=== PATIENT | female | born 1965 | race Caucasian/White ===

== ENCOUNTER 2020-08-08 10:35 | Outpatient (CLI) | payer OTHER, SELFPAY ==
--- NOTE | ~2020-08-08 | MM_ITS ---
EXAMINATION: MM screening [facility] BI w lizz HISTORY: Screening mammogram TECHNIQUE: Craniocaudal and mediolateral oblique 3-D tomosynthesis images were obtained and synthetic 2-D images were generated. CAD analysis was submitted and interpreted. COMPARISON: 02/14/2018, 04/14/2016, 04/07/2016, 11/12/2014 BREAST PARENCHYMAL COMPOSITION: There are scattered areas of fibroglandular density. FINDINGS: Changes of excisional biopsy are present in the right breast. There are waxing and waning b ilateral breast masses, consistent with cysts. There is no evidence of suspicious mass, calcification , or architectural distortion to suggest malignancy in either breast. There has been no suspicious in terval change. IMPRESSION: 1. No mammographic evidence of malignancy. 2. Recommend routine screening mammography in one year. BI-RADS Category 2: Benign finding(s). Reviewed, dictated and finalized at location [facility].
== END 2020-08-08 10:36 | disposition home or self-care (01) ==
PROVIDERS: Visit Provider Physician Assistant
DX: Z12.31 Encounter for screening mammogram for malignant neoplasm of breast (principal)
CPT/HCPCS: 77063; 77067

== ENCOUNTER 2020-11-17 01:43 | Day surgery (SDC) | payer OTHER, SELFPAY ==
[2020-11-06 08:32] VITALS: BMI 38.2
[2020-11-17 06:55] VITALS: BP 120/69; PULSE 84; RESP 18; TEMP 36.3; O2SAT 97; BMI 38.5
[2020-11-17] MEDS: LACTATED RINGERS 1,000 ML 150 ML IV CONT (07:27)
--- NOTE | 2020-11-17 07:28 | WPDGICN ---
Assessment and Plan Assessment and plan (1) History of colon polyps: Code(s): Z86.010 - Personal history of colonic polyps Status: Acute Assessment and Plan: Patient has a history of adenomatous colon polyps removed from the colon 2016. She has a family history of colon cancer in aunt. Plan is for follow-up colonoscopy at this time. Consider follow-up examination at 5 year intervals in the future. Pending results of endoscopy. GI Consult Note Consult date/time: 11/17/20 07:28 HPI: Kiera Ford is a 55 year old female Presents for surveillance colonoscopy. Patient was found to have 3 colon polyps confirmed to be adenomas in [address] Lewis. Patient states that her current weight appetite and bowel movements are normal. She denies abdominal pain. She has had no bleeding. Family history is significant for an aunt with colon cancer. Patient presents today for follow-up colonoscopy. Review of Systems Review of Systems: All systems reviewed & are unremarkable except as noted in HPI and below PMFSH Family History Family History Mother Family history of malignant neoplasm of ovary Patient's mother is Depression Grandparent Family history of lung cancer, Onset Age: 72 Other Carcinoma of colon Family history of malignant melanoma Social History Social History Smoking status: Never smoker Second hand tobacco smoke exposure: No Alcohol intake: never Substance use: never Substance use type: does not use Living arrangements: with family Spiritual care concerns: No Meds Home Medications and Allergies Home Medications Medication Instructions Recorded Confirmed Type cholecalciferol (vitamin D3) 50 2,000 unit PO DAILY 01/11/19 11/06/20 History mcg (2,000 unit) tablet evening primrose oil 500 mg capsule 1,500 mg PO DAILY cap 01/11/19 11/06/20 History flaxseed oil 1,000 mg capsule 1,000 mg PO DAILY 01/11/19 11/06/20 History ergocalciferol (vitamin D2) 50,000 unit PO WEEKLY 11/06/20 11/06/20 History glucosamine [id number] 1 cap PO DAILY 11/06/20 11/06/20 History levothyroxine 150 mcg PO DAILY 11/06/20 11/06/20 History Allergies Allergy/AdvReac Type Severity Reaction Status Date / Time propoxyphene AdvReac Intermediate NV Verified 11/17/20 06:54 shellfish derived AdvReac Intermediate Gastrointestinal Verified 11/17/20 06:54 Upset amoxicillin AdvReac Mild STOMACH Verified 11/17/20 06:54 UPSET naproxen AdvReac Mild Gastrointestinal Verified 11/17/20 06:54 Upset HYDROCODONE BIT AdvReac Intermediate STOMACH Uncoded 04/25/16 07:22 UPSET Vital Signs Vital Signs - 24 hr 11/17/20 06:55 Temperature 97.3 F L Pulse Rate 84 Respiratory Rate 18 Blood Pressure 120/69 Pulse Oximetry 97 Exam Narrative: Physical exam reveals patient to be alert. Vital signs stable. HEENT exam is unremarkable. Patient is anicteric. Lungs are clear to auscultation and percussion. Heart is without murmur or extra sounds. Abdominal exam bowel sounds are present soft nontender with no organomegaly. Digital external rectal exam is normal.
--- NOTE | 2020-11-17 07:42 | WPDANESEPPF ---
Anes - Initial Pre Proc Eval Procedure: Operation Date: 11/17/20 08:00 Proposed Procedures p Screening Colonoscopy - Robin Barnard MD Date/Time: 11/17/20 07:42 Surgeon: Robin Barnard MD Pre Op Diagnosis: hx of colon polyps Z86.010 Patient Data Age: 55 Gender: F Height: 1.6 m Weight: 98.5 kg Last Vital Signs Temp 97.3 F L 11/17/20 06:55 Pulse 84 11/17/20 06:55 Resp 18 11/17/20 06:55 BP 120/69 11/17/20 06:55 Pulse Ox 97 11/17/20 06:55 Allergies Allergy/AdvReac Type Severity Reaction Status Date / Time propoxyphene AdvReac Intermediate NV Verified 11/17/20 06:54 shellfish derived AdvReac Intermediate Gastrointestinal Verified 11/17/20 06:54 Upset amoxicillin AdvReac Mild STOMACH Verified 11/17/20 06:54 UPSET naproxen AdvReac Mild Gastrointestinal Verified 11/17/20 06:54 Upset HYDROCODONE BIT AdvReac Intermediate STOMACH Uncoded 04/25/16 07:22 UPSET Home Medications Medication Instructions Recorded Confirmed Type cholecalciferol (vitamin D3) 50 2,000 unit PO DAILY 01/11/19 11/06/20 History mcg (2,000 unit) tablet evening primrose oil 500 mg capsule 1,500 mg PO DAILY cap 01/11/19 11/06/20 History flaxseed oil 1,000 mg capsule 1,000 mg PO DAILY 01/11/19 11/06/20 History ergocalciferol (vitamin D2) 50,000 unit PO WEEKLY 11/06/20 11/06/20 History glucosamine ejw-[id number]-gvy 1 cap PO DAILY 11/06/20 11/06/20 History levothyroxine 150 mcg PO DAILY 11/06/20 11/06/20 History Patient hx anesthesia problems: none Family hx anesthesia problems: none PMFSH Past Medical History Medical History (Updated 11/17/20 @ 07:43 by Shahid Harrison MD) Hypercholesteremia Hypothyroidism (acquired) Family History Family History Mother Family history of malignant neoplasm of ovary Patient's mother is Depression Grandparent Family history of lung cancer, Onset Age: 72 Other Carcinoma of colon Family history of malignant melanoma Social History Social History Smoking status: Never smoker Second hand tobacco smoke exposure: No Alcohol intake: never Substance use: never Substance use type: does not use Living arrangements: with family Spiritual care concerns: No Anes - Eval Final PreProcedure Day of Procedure 11/17/20 07:42 Patient weight: obese Heart: regular rate and rhythm Lungs: clear to auscultation Airway: Mallampati scale class III Neurological: alert and oriented Last oral intake: >/= 8 hours ASA classification: III Emergent: no Anesthetic plan: proceed Anesthesia type and monitoring: general GIVS and standard monitoring Informed Consent: The patient's anesthetic plan and its attendant risks and benefits were discussed with the patient/family/POA. Questions were solicited and answers provided to the satisfaction of the patient/family/POA.
[2020-11-17] MEDS: ONDANSETRON INJ 4 MG/2 ML VIAL IV PUSH (07:54)
[2020-11-17 08:25] VITALS: BP 110/54; PULSE 86; RESP 20; O2SAT 97
[2020-11-17 08:35] VITALS: BP 122/61; PULSE 78; RESP 15; O2SAT 100
[2020-11-17 08:45] VITALS: BP 125/63; PULSE 73; RESP 17; O2SAT 100
== END 2020-11-17 08:56 | disposition home or self-care (01) ==
PROVIDERS: Visit Provider Internal Medicine Gastroenterology
PROC: 0DJD8ZZ Inspection of Lower Intestinal Tract, Via Natural or Artificial Opening Endoscopic (ICD-10-PCS; CPT 45378; principal; 2020-11-17 08:00)
DX: Z12.11 Encounter for screening for malignant neoplasm of colon (principal); D12.5 Benign neoplasm of sigmoid colon; E78.00 Pure hypercholesterolemia, unspecified; E03.9 Hypothyroidism, unspecified; E66.9 Obesity, unspecified; Z68.38 Body mass index [BMI] 38.0-38.9, adult
CPT/HCPCS: 45385; 88305; J2001; J2405; J2704; J7120

== ENCOUNTER 2021-07-05 13:30 | Outpatient (CLI) | payer OTHER, SELFPAY ==
--- NOTE | ~2021-07-05 | US_ITS ---
US thyroid DATE: 07/05/2021 14:16 INDICATION: Nontoxic goiter TECHNIQUE: Real-time and color flow imaging of the thyroid gland COMPARISON: None FINDINGS: Right lobe of thyroid gland measures 4.7 cm height, 1.6 cm AP and 2.0 cm maximal transverse dimension . Left lobe measures 4.3 cm height, 1.5 cm AP and up to 1.6 cm maximal transverse dimension. There is relatively symmetric somewhat coarse heterogeneous echotexture throughout the thyroid gland, with some focal mid right lobe calcifications. There is an approximately 3.5 x 3.9 x 4.5 mm smooth circumscribed hypoechoic/nearly isoechoic wider t almendarez tall solid lesion of the lower aspect of the right lobe of the thyroid gland (TI-RADS 3; 6 month follow up recommended). No other thyroid mass lesion is noted. IMPRESSION: TI-RADS 3 4.4 mm lower pole right thyroid lesion; six-month thyroid ultrasound follow-u p is recommended Reviewed, dictated and finalized at [facility]. Reviewed, dictated and finalized at location [facility]. IMPRESSION: TI-RADS 3 4.4 mm lower pole right thyroid lesion; six-month thyro id ultrasound follow-up is recommended
== END 2021-07-05 13:31 | disposition home or self-care (01) ==
PROVIDERS: PCP Physician Assistant; Visit Provider Internal Medicine Endocrinology, Diabetes & Metabolism
DX: E04.9 Nontoxic goiter, unspecified (principal)
CPT/HCPCS: 76536

== ENCOUNTER 2021-12-17 11:20 | Outpatient (CLI) | payer OTHER, SELFPAY ==
--- NOTE | ~2021-12-17 | MMUS_ITS ---
EXAMINATION: MM diagnostic [facility] BI w lizz, US breast RT complete HISTORY: Palpable right breast lump with pain TECHNIQUE: Additional 3-D tomosynthesis images of the breasts were performed and synthetic 2-D images were generated. CAD analysis was submitted and interpreted. High resolution complete right breast ul trasound was performed. COMPARISON: Comparison to multiple prior studies sequentially, with oldest reviewed study dated 04/23. BREAST PARENCHYMAL COMPOSITION: Breast composed of scattered areas of fibroglandular density FINDINGS: MAMMOGRAPHIC FINDINGS: The left breast is stable without evidence for malignancy. There are nodular asymmetries in the upper outer quadrant of the right breast which are partially obscured by fibroglandular tissue. There are surgical changes in the upper outer quadrant of the right breast anteriorly corresponding to previous biopsy site. ULTRASOUND: Complete right breast US of all 4 quadrants of the breasts and retroareolar region was reviewed. Ther e are multiple cysts of the right breast, largest at 12:00, 1 cm from the nipple measuring 1 cm great est dimension. There is focal heterogeneous soft tissue with posterior shadowing at 7:00, 3 cm from t he nipple, likely corresponding to previous surgical site. No suspicious masses to suggest malignancy . IMPRESSION: 1. No evidence for malignancy in either breast. Benign findings. 2. Routine yearly screening mammogram and regular clinical breast examination are recommended. BI-RADS Category 2: Benign finding(s). Reviewed, dictated and finalized at location A. IMPRESSION: 1. No evidence for malignancy in either breast. Benign findings. 2. Routine yearly screening mammogram and regular clinical breast examination a re recommended. BI-RADS Category 2: Benign finding(s).
== END 2021-12-17 11:21 | disposition home or self-care (01) ==
LOC: ANHIMG 11:22
PROVIDERS: PCP Physician Assistant; Visit Provider Physician Assistant
DX: N64.4 Mastodynia (principal); N63.41 Unspecified lump in right breast, subareolar
CPT/HCPCS: 76641; 77062; 77066; G0279

== ENCOUNTER 2023-07-07 15:00 | Outpatient (CLI) | payer OTHER, SELFPAY ==
--- NOTE | ~2023-07-07 | MM_ITS ---
EXAMINATION: MM screening [facility] BI w lizz HISTORY: Screening mammogram TECHNIQUE: Craniocaudal and mediolateral oblique 3-D tomosynthesis images were obtained and synthetic 2-D images were generated. CAD analysis was submitted and interpreted. COMPARISON: 12/17/2021 diagnostic bilateral mammogram and complete right breast ultrasound 08/08/2020 bilateral screening mammogram BREAST PARENCHYMAL COMPOSITION: There are scattered areas of fibroglandular density. FINDINGS: Biopsy clips are noted on the right; history of prior benign right breast biopsy. Scattered occasional subcentimeter low-density circumscribed opacities are noted bilaterally with interval res olution of others since 12/17/2021, likely due to benign fibrocystic breasts. . There is no evidence of suspicious mass, calcification, or architectural distortion to suggest jones gnancy in either breast. There has been no suspicious interval change. IMPRESSION: 1. No mammographic evidence of malignancy. 2. Recommend routine screening mammography in one year. BI-RADS Category 2: Benign finding(s). Reviewed, dictated and finalized at location [facility].
== END 2023-07-07 15:01 | disposition home or self-care (01) ==
LOC: ANHIMG 15:39
PROVIDERS: PCP Family Medicine; Visit Provider Registered Nurse
DX: Z12.31 Encounter for screening mammogram for malignant neoplasm of breast (principal)
CPT/HCPCS: 77063; 77067

== ENCOUNTER 2023-08-22 09:35 | Outpatient (CLI) | payer OTHER, SELFPAY ==
--- NOTE | ~2023-08-22 | CT_ITS ---
CT of the Abdomen and Pelvis: Indication: Abdominal distention Technique: 2.5 mm axial scans were obtained through the abdomen and pelvis following intravenous adm inistration of 100 cc of Omnipaque 350. Dose reduction technique was used on this scan by utilizing a utomated exposure control and iterative reconstruction technique. The dose-length product (DLP) was 1 467.64 mGy-cm. Findings: Scans through the lung bases demonstrate large calcified right basilar granuloma. There is diffuse hepatic steatosis with small hepatic cyst present. The spleen, pancreas, gallbladder , adrenals and kidneys are within normal limits. No evidence of aortic aneurysm. No lymphadenopathy . No bowel obstruction or bowel wall thickening. There is no evidence to suggest acute appendicitis. Images through the pelvis were performed. Urinary bladder unremarkable. No pelvic mass seen. No ascit es. Impression: No acute abnormality. Diffuse hepatic steatosis. Reviewed, dictated and finalized at [facility]. Impression: No acute abnormality. Diffuse hepatic steatosis.
== END 2023-08-22 09:36 | disposition home or self-care (01) ==
LOC: ANHIMG 09:36
PROVIDERS: PCP Family Medicine; Visit Provider Nurse Practitioner Family
DX: R14.0 Abdominal distension (gaseous) (principal); K76.0 Fatty (change of) liver, not elsewhere classified
CPT/HCPCS: 74177; Q9967